=== PATIENT | female | born 1945 | race Caucasian/White ===

== ENCOUNTER 2016-07-21 16:30 | Observation (INO) | payer OTHER ==
--- NOTE | ~2016-07-21 | CO ---
Unit #: [id number] #: [id number] Patient: JANENE SARAVIA [id number] [address] [place], [place] [address] [id number] MR#: [id number] NAME: JANENE SARAVIA ROOM: [facility] Age: 71 Sex: F Admission Date: 07/21/2016 : 1945 Attending Physician: Justine Bell M.D. Primary Care Physician: Lisandro Hidalgo M.D. Consultation Date: 07/23/2016 CONSULTATION REPORT REASON FOR CONSULTATION Abnormal thyroid function test. Janene Saravia is a pleasant 71-year-old female who was actually admitted after she was found to have abnormal EKG findings. Patient underwent a cardiac cath, which showed normal coronary arteries with low ejection fraction. On further evaluation thyroid function tests were abnormal with a TSH of 0.01, free T4 is 2.25, free T3 is 5.0. Patient reports no recent weight, palpitations, tremors, shaking, diarrhea, nausea, or vomiting. The patient does not produce any history of any thyroid problems or taking any thyroid hormone replacement. PAST MEDICAL HISTORY Remarkable for the cardiomyopathy, tobacco use, hypertension. ALLERGIES None. CURRENT MEDICATIONS List is reviewed. Patient is on metoprolol, spironolactone, metoprolol is 25 mg twice daily; atorvastatin 20 mg daily; Zestril 5 mg daily; spironolactone 12.5 mg daily. REVIEW OF SYSTEMS Ten point review of system is completed. Please see HPI. PHYSICAL EXAMINATION GENERAL: She is awake, alert, and oriented to time, place and person. VITAL SIGNS: Afebrile, temp 97.7, pulse 64, blood pressure 116/69. HEENT: Pupils equally react to light. NECK: Supple. No thyromegaly noted. CHEST: Good air entry. CVS: Regular rhythm, no murmurs. ABDOMEN: Soft, nontender, bowel sounds positive. EXTREMITIES: No edema noted. NEUROLOGIC: Nonfocal. Moving all extremities. SKIN: Normal. DIAGNOSTIC STUDIES LABORATORY STUDIES: TSH 0.013, T4 is 2.25, free T3 is 5.0. ASSESSMENT 1. Thyrotoxicosis, cannot exclude the possibility of any thyroiditis. 2. Cardiomyopathy, (1) cardiac cath. Unit #: [id number] #: [id number] Patient: JANENE SARAVIA PLAN Discuss with patient and restart patient on methimazole 10 mg twice daily. Continue beta-blockers. Discuss with patient the adverse affects, develops any fever or sore throat to call my office immediately and follow up in the office in three to four weeks. Dictated by... Sharon Mckoy/taylor TD: 07/25/2016 14:20 JOB #: [id number] CONSULTATION REPORT Page 1 of 1 X Trever Almonte MD X CONSULTATION REPORT
--- NOTE | ~2016-07-21 | DS ---
Unit #: [id number] #: [id number] Patient: BRINA LANDRY [id number] [address] [place], [place] [address] [id number] MR#: [id number] NAME: BRINA LANDRY. ROOM: [facility] Age: 71 Sex: F Admission Date: 07/21/2016 : 1945 Discharge Date: 07/23/2016 Attending Physician: Justine Bell M.D. Primary Care Physician: Lisandro Hidalgo M.D. DISCHARGE SUMMARY DISCHARGE DIAGNOSES 1. Abnormal electrocardiogram with high suspicion for coronary artery disease. 2. Status post cardiac catheterization 07/22/[address] Pham that revealed angiographically normal coronaries. There was apical ballooning or regional cardiomyopathy, a residual of stress cardiomyopathy. 3. Hypotension, resolved. 4. Thyrotoxicosis. 5. Nicotine abuse. 6. 2D echocardiogram 07/21/2016 shows ejection fraction of 25% to 30% with a large area of severe apical hypokinesis. There is mild mitral regurgitation and mild to moderate tricuspid regurgitation. Moderate pulmonic valvular regurgitation. Right ventricular systolic pressure is 70 mmHg. 7. Severe hypokalemia, resolved. DISCHARGE MEDICATIONS 1. Methimazole 10 mg b.i.d. 2. Metoprolol tartrate 25 mg b.i.d. 3. Lipitor 20 mg q. h.s. 4. Lisinopril 5 mg q. h.s. 5. Aspirin 81 mg daily. 6. Spironolactone 12.5 mg daily. HOSPITAL COURSE This is a 71-year-old white female who presented to the office with a complaint of chest pain. Electrocardiogram in the office was very abnormal with anterolateral wall ischemia. It was recommended that she be admitted for cardiac catheterization to evaluate coronary anatomy. The patient agreed. The following day, she went for cardiac catheterization which found her to have angiographically normal coronaries. There was apical ballooning consistent with stress cardiomyopathy. She was started on spironolactone. Beta nicholas, RONALDO inhibitor, and statin was also started. After the cardiac catheterization, she was doing well but later developed episode of hypotension where blood pressure dropped to 80/56 mmHg. Her discharge was delayed because of hypotension. Metoprolol and lisinopril doses were decreased. She received normal saline IV bolus. Her blood pressure stabilized. She was severely hypokalemic. Her potassium level was 2.9 for which she received supplement. Magnesium level was also low which was supplemented. Her troponin peaked at 0.29. Cholesterol levels were within normal limits. TSH was obtained which was low at 0.01 with free T4 2.25 and free T3 5.0. Dr. Almonte was asked to see the patient where he felt she had thyrotoxicosis. She was started on Unit #: [id number] #: [id number] Patient: BRINA LANDRY methimazole. Today, the patient has no symptoms of angina or dyspnea. Her heart rate and blood pressure stable. Potassium level corrected. Right radial without hematoma or bruising. She is stable for discharge today. DIAGNOSTIC STUDIES LABORATORY: Glucose 98, BUN 16, creatinine 0.5, sodium 140, potassium 3.5, cholesterol 159, triglyceride 61, LDL is 99, HDL 48, TSH 0.01, free T4 2.25, free T3 5.0. White count 6.4, hemoglobin 10.9, hematocrit 33.1, platelet count 110. CARDIOVASCULAR: Rhythm strip shows sinus rhythm. CONSULTATION Dr. Almonte - Endocrinology. DISCHARGE INSTRUCTIONS 1. The patient will be discharged home today. 2. Follow up with Dr. Almonte in three to four weeks. With her primary care physician in two to three weeks. 3. Follow up with Dr. Bell on 10/20/2016 at 1:00. She will need a limited echocardiogram to follow up for left ventricular ejection fraction. 4. Encouraged the patient to quit smoking. 5. No evidence of heart failure on examination. The patient will be discharged home on spironolactone at low dose. On beta nicholas, statin and RONALDO inhibitor. Dictated by... Beni Cheek A.P.R.N. for Sharon Mata TD: 07/26/2016 08:38 JOB #: [id number] DISCHARGE SUMMARY Page 1 of 1 X Beni Cheek APRN DISCHARGE SUMMARY
--- NOTE | ~2016-07-21 | EKG ---
PATIENT: BRINA LANDRY UNIT #: [id number] Ventricular Rate: 57 BPM Atrial Rate: 57 BPM P-R Interval: 148 ms QRS Duration: 82 ms Q-T Interval: 516 ms QTC Calculation(Bezet): 502 ms P [place]: 72 degrees Calculated R [place]: 89 degrees Calculated T [place]: -178 degrees Diagnosis Line: Sinus bradycardia with sinus arrhythmia Diagnosis Line: Possible Left atrial enlargement Diagnosis Line: ST and Marked T wave abnormality, consider Diagnosis Line: anterolateral ischemia Diagnosis Line: Prolonged QT Diagnosis Line: Abnormal ECG Diagnosis Line: No previous ECGs available Diagnosis Line: Confirmed by CHRISTIANO TOWNSEND MD ([id number]) on Diagnosis Line: 07/23/2016 11:01:41 PM INTERPRETING MD: NATALIE
[2016-07-21 21:24] LABS: HEMATOCRIT 35.7 % (35.0-45.0); HEMOGLOBIN 11.8 gm/dL (12.0-16.0); MEAN CELL VOLUME 85.6 FL (83-96); MEAN CORPUSCULAR HEMOGLOBIN 28.2 PG (28-34); RED BLOOD COUNT 4.17 X10e (3.90-5.30); RED CELL DISTRIBUTION WIDTH 13.2 % (11.0-15.5); WHITE BLOOD COUNT 7.6 X10e3 (4.0-10.5)
[2016-07-21 21:48] LABS: BUN/CREATININE RATIO 37.5; CALCIUM SERUM 8.8 mg/dL (8.4-10.2); CREATININE SERUM 0.4 mg/dL (0.6-1.4); GLOM FILT RATE Estimated 104.8 mL/min (>60)
[2016-07-21 21:50] LABS: POTASSIUM 2.9 mmol/L (3.5-5.1)
[2016-07-21 22:08] LABS: %MB 3.6 % (0.0-4.0); MB 3.6 ng/ml
[2016-07-22 06:20] LABS: HEMATOCRIT 33.1 % (35.0-45.0); HEMOGLOBIN 10.9 gm/dL (12.0-16.0); MEAN CELL VOLUME 85.2 FL (83-96); MEAN CORPUSCULAR HGB CONC 32.9 g/dL (30-36); MEAN PLATELET VOLUME 11.5 FL (6.5-11.5); RED BLOOD COUNT 3.89 X10e (3.90-5.30); RED CELL DISTRIBUTION WIDTH 13.1 % (11.0-15.5); WHITE BLOOD COUNT 6.4 X10e3 (4.0-10.5)
[2016-07-22 06:53] LABS: PARTIAL THROMBOPLASTIN TIME 29.1 SECONDS (23.5-31.3)
[2016-07-22 07:28] LABS: MAGNESIUM 1.7 mg/dL (1.6-3.0)
[2016-07-22 08:54] LABS: CALCIUM SERUM 8.8 mg/dL (8.4-10.2); CREATININE SERUM 0.5 mg/dL (0.6-1.4); GLOM FILT RATE Estimated 97.4 mL/min (>60); POTASSIUM 3.5 mmol/L (3.5-5.1)
[2016-07-23] MEDS ORDERED: LIPITOR20 MG PO (07:47)
[2016-07-23] MEDS ORDERED: LOPRESSOR PO (07:47)
[2016-07-23] MEDS ORDERED: ASPIRIN81 M2 PO (07:48)
[2016-07-23] MEDS ORDERED: LISINOPRIL20 MG PO (07:48)
[2016-07-23] MEDS ORDERED: ALDACTONE PO (07:49)
[2016-07-23 09:28] LABS: FREE THYROXIN (T4) 2.25 ng/dL (0.58-1.64)
[2016-07-23] MEDS ORDERED: METHIMAZOLE10 MG PO (14:48)
== END 2016-07-23 16:07 | disposition home or self-care (01) ==
LOC: C3A PCU 16:30
PROVIDERS: Internal Medicine Cardiovascular Disease
DX: I50.21 Acute systolic (congestive) heart failure (principal); I51.81 Takotsubo syndrome; R94.31 Abnormal electrocardiogram [ECG] [EKG]; E05.90 Thyrotoxicosis, unspecified without thyrotoxic crisis or storm; I95.9 Hypotension, unspecified; I08.8 Other rheumatic multiple valve diseases; E87.6 Hypokalemia; F17.200 Nicotine dependence, unspecified, uncomplicated; Z79.82 Long term (current) use of aspirin
CPT/HCPCS: 80048; 80061; 82550; 82553; 83735; 84439; 84443; 84481; 84484; 85027; 85610; 85730; 93005; 96365; 96366; 96372; C1769; C1887; C1894; G0378; J1644; J1650; J2250; J3010; J3475